=== PATIENT | female | born 1965 | race Caucasian/White ===

== ENCOUNTER 2022-07-29 10:06 | Emergency (ER) | payer BC, SELFPAY ==
[2022-07-29 10:10] VITALS: BP 147/78; PULSE 119; RESP 28; TEMP 36.4; O2SAT 93
--- NOTE | 2022-07-29 10:31 | XRR_ITS ---
PROCEDURE INFORMATION: Exam: XR Chest Exam date and time: 07/29/2022 10:37 AM Age: 56 years old Clinical indication: Cough and dyspnea. TECHNIQUE: Imaging protocol: Radiologic exam of the chest. Views: 1 view. COMPARISON: No relevant prior studies available. FINDINGS: Lungs: There is mild peribronchial wall thickening. There are hazy bibasilar opacity suspicious for subtle infiltrate/pneumonia. Surgical clips at the left hilum. Pleural spaces: No pleural effusion. No pneumothorax. Heart/Mediastinum: The heart/mediastinum appears enlarged which may be exaggerated by AP technique and rotation. No gross evidence of pneumomediastinum. Bones/joints: No gross fracture. Soft tissues: Scarring in the mid left chest with suture material and surgical clips. XR/XR chest 1V portable [id number] IMPRESSION: 1. The heart/mediastinum appears enlarged which may be exaggerated by AP technique and rotation. 2. There is mild peribronchial wall thickening; query viral infection/bronchitis, chronic bronchitis and/or asthma. 3. Hazy bibasilar opacity suspicious for subtle infiltrate/pneumonia. 4. Consider CT chest with contrast to further assess if clinically warranted.
--- NOTE | 2022-07-29 10:49 | ED_ITS ---
HPI - SOB/Dyspnea General: Chief Complaint: Shortness of Breath/Dyspnea Stated Complaint: SOB Time Seen by Provider: 07/29/22 10:20 Source: patient Mode of arrival: ambulatory History of Present Illness: HPI Narrative: 56-year-old female presents emergency room with cough congestion nausea vomiting and began 9 days ago. She was treated with course of antibiotics and steroids no improvement. She notes that exertion makes her shortness of breath worse resting makes it better she is not really having any chest pain that is slightly productive cough. On arrival here she is mildly tachycardic when I came to the room she was 88% on room air with a good waveform improved to the low 90s on 2 L by nasal cannula. 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 She has no known history of coronary artery disease, stroke or diabetes. Patient does smoke. MD elicited complaint: shortness of breath and cough Onset (ago): day(s) (9) Timing: intermittent Severity: mild Exacerbating factors: lying flat and exertion Relieving factors: rest and upright position Associated symptoms: Reports chest congestion and cough; Deny abdominal pain, chest pain, diaphoresis, dizziness, extremity pain, fever(s), hemoptysis, lightheadedness, myalgias, nausea, orthopnea, palpitations, paresthesias, polydipsia, polyuria, rash, sense of impending doom, syncope or vomiting Treatment prior to arrival: none Review of Systems Const: Denies: fever(s), chills, fatigue, malaise or diaphoresis ENMT: Denies: throat pain, ear or mastoid pain, nasal discharge or nasal congestion Card: Denies: chest pain, palpitations, irregular heart rhythm, edema, lightheadedness, syncope or orthopnea Resp: Reports: dyspnea, non-productive cough and chest congestion; Denies: productive cough, wheezing or hemoptysis GI: Denies: abdominal pain, nausea or vomiting : Denies: flank pain, difficulty voiding, dysuria, urinary frequency or urinary urgency Musc: Denies: extremity pain Skin/Breast: Denies: rash or pruritus Neuro: Denies: dizziness Endo: Denies: polyuria or polydipsia PFS ED PFSH: Medical History (Updated 07/29/22 @ 13:22 by Beau L Horstman, DO) Flhvl-Ioaoopsrx-Dqrot (WPW) syndrome Social History (Updated 07/29/22 @ 10:52 by Beau Hendrix DO) Smoking and tobacco status: current every day smoker Alcohol intake: current Alcohol intake frequency: holidays/special occasions only Physical Exam Const: COMMON NORMALS: no acute distress GENERAL APPEARANCE: cooperative and comfortable ORIENTATION/CONSCIOUSNESS: Yes awake, Yes oriented to person, Yes oriented to place and Yes oriented to time HENMT: COMMON NORMALS: normocephalic, atraumatic and hearing grossly normal bilaterally HEAD & SCALP: normocephalic and atraumatic Resp: COMMON NORMALS: normal respiratory effort, No retractions, No use of accessory muscles and clear to auscultation bilaterally AUSCULTATION: clear to auscultation bilaterally Cardio: COMMON NORMALS: regular rate, regular rhythm and No murmurs present (Cardio) RATE: regular rate RHYTHM: regular rhythm GI: COMMON NORMALS: Soft to palpation and No hepatosplenomegaly present AUSCULTATION: Yes normoactive bowel sounds PALPATION: Yes Soft to palpation, No Tenderness to palpation present (GI), No Guarding due to palpation present (GI) and Yes No hepatosplenomegaly present Extremity: COMMON NORMALS: normal to inspection, capillary refill normal, no clubbing, cyanosis or edema, no calf tenderness and no pedal edema Neuro: SENSORIUM/ORIENTATION: Yes oriented to person, Yes oriented to place and Yes oriented to time Skin: COMMON NORMALS: no rashes or lesions noted GENERAL SKIN EXAM: no rashes or lesions noted Course Vital Signs: Vital signs: Vital Signs Temperature 97.6 F 07/29/22 10:10 Pulse Rate 96 07/29/22 13:28 Respiratory Rate 16 07/29/22 13:25 Blood Pressure 147/78 07/29/22 10:10 Pulse Oximetry 91 07/29/22 13:29 Oxygen Delivery Me thod 07/29/22 13:25 Oxygen Flow Rate 2 07/29/22 11:03 MDM - SOB/Dyspnea Medical Decision Making No longer needs oxygen after having a nebulizer treatment we did do home O2 eval and it was negative. She is feeling somewhat better chest x-ray shows pneumonia . Will discharge home with albuterol steroid taper and Levaquin follow-up with her primary care doctor if not improving in the next few days. She was also given potassium supplement for her hypokalemia. Medical Records I reviewed the patient's medical records. Lab Data I reviewed the patient's lab results. 07/29/22 10:50 07/29/22 10:50 Labs/Radiology: Radiology Impressions Chest X-Ray 07/29/22 10:31 IMPRESSION: 1. The heart/mediastinum appears enlarged which may be exaggerated by AP technique and rotation. 2. There is mild peribronchial wall thickening; query viral infection/bronchitis, chronic bronchitis and/or asthma. 3. Hazy bibasilar opacity suspicious for subtle infiltrate/pneumonia. 4. Consider CT chest with contrast to further assess if clinically warranted. Laboratory Results WBC 9.3 10^3/uL (4.0-10.0) 07/29/22 10:50 RBC 4.91 10^6/uL (4.1-5.3) 07/29/22 10:50 Hgb 14.1 g/dL (11.5-15.3) 07/29/22 10:50 Hct 41.9 % (37.0-47.0) 07/29/22 10:50 MCV 85.3 fl (81-99) 07/29/22 10:50 MCH 28.7 pg (28.0-34.0) 07/29/22 10:50 MCHC 33.7 g/dL (30.0-36.0) 07/29/22 10:50 RDW 12.5 % (12.1-15.1) 07/29/22 10:50 Plt Count 359 10^3/cmm (130-400) 07/29/22 10:50 MPV 9.5 fL (7.4-10.4) 07/29/22 10:50 Neut % (Auto) 64.8 % 07/29/22 10:50 Lymph % (Auto) 28.8 % 07/29/22 10:50 [place] % (Auto) 5.1 % 07/29/22 10:50 Eos % (Auto) 0.6 % 07/29/22 10:50 Baso % (Auto) 0.1 % 07/29/22 10:50 Neut # (Auto) 6.04 10^3/uL (1.8-7.7) 07/29/22 10:50 Lymph # (Auto) 2.7 10^3/uL (0.8-4.8) 07/29/22 10:50 [place] # (Auto) 0.5 10^3/uL (0.2-0.9) 07/29/22 10:50 Eos # (Auto) 0.1 10^3/uL (0.0-0.8) 07/29/22 10:50 Baso # (Auto) 0.0 10^3/uL (0.0-0.1) 07/29/22 10:50 Nucleated RBC % (auto) 0 % 07/29/22 10:50 Nucleated RBCs # 0.0 /100WBC 07/29/22 10:50 Sodium 134 mmol/L (136-145) L 07/29/22 10:50 Potassium 2.6 mmol/L (3.5-5.1) L* 07/29/22 10:50 Chloride 97 mmol/L (98-107) L 07/29/22 10:50 Carbon Dioxide 22 mmol/L (22-29) 07/29/22 10:50 Anion Gap 17.6 (5-19) 07/29/22 10:50 BUN 5 mg/dL (6-20) L 07/29/22 10:50 Creatinine 0.6 mg/dL (0.5-0.9) 07/29/22 10:50 GFR Calculation 103.0 mL/min (90-130) 07/29/22 10:50 Glucose 188 mg/dL (65-115) H 07/29/22 10:50 Calculated Osmolality 280 mOsm/kg (285-295) L 07/29/22 10:50 Calcium 9.0 mg/dL (8.5-10.5) 07/29/22 10:50 Total Bilirubin 0.3 mg/dL (0.15-1.2) 07/29/22 10:50 AST 44 U/L (0-32) H 07/29/22 10:50 ALT 27 U/L (0-33) 07/29/22 10:50 Alkaline Phosphatase 115 U/L (35-105) H 07/29/22 10:50 NT-Pro-B Natriuret Pep 35 pg/mL (0-125) 07/29/22 10:50 Total Protein 7.8 g/dL (6.6-8.7) 07/29/22 10:50 Albumin 3.4 g/dL (3.5-5.2) L 07/29/22 10:50 Globulin 4.4 g/dL (1.3-4.6) 07/29/22 10:50 Nasal Influ A H1 2008 PCR Not detected (NOT DETECT) 07/29/22 11:15 Coronavirus 229E (PCR) Not detected (NOT DETECT) 07/29/22 11:15 Influenza A (H1) PCR Not detected (NOT DETECT) 07/29/22 11:15 Influenza A (H3) PCR Not detected (NOT DETECT) 07/29/22 11:15 Influenza Type A Ag Cancelled 07/29/22 11:15 Influenza Type A (PCR) Not detected (NOT DETECT) 07/29/22 11:15 Influenza Type B Ag Cancelled 07/29/22 11:15 Influenza Type B (PCR) Not detected (NOT DETECT) 07/29/22 11:15 SARS-CoV-2 (PCR) Not detected (NOT DETECT) 07/29/22 11:15 Discharge Plan Discharge Patient Disposition: Home Clinical Impression: Community acquired pneumonia, Acute exacerbation of chronic obstructive airways disease Condition: Stable Prescriptions: New levofloxacin 750 mg tablet 750 mg PO DAILY 7 Days Qty: 7 0RF albuterol sulfate 90 mcg/actuation HFA aerosol inhaler 2 inh INHALATION Q4H PRN (Reason: shortness of breath or wheezing) Qty: 18 0RF prednisone 20 mg tablet 20 mg PO TID Qty: 15 0RF Rx Instructions: 1 p.o. 3 times daily x3 days, 1 p.o. twice daily x2 days, 1 p.o. daily x2 days No Action losartan 50 mg tablet 50 mg PO DAILY fluoxetine 40 mg capsule 40 mg PO DAILY Rx Instructions: Take with 20mg to equal 60mg daily ibuprofen 800 mg tablet 800 mg PO TID PRN (Reason: Pain) sotalol 80 mg tablet 80 mg PO DAILY clonazepam 0.5 mg tablet 0.5 mg PO BID PRN (Reason: Anxiety) simvastatin 10 mg tablet 10 mg PO DAILY olanzapine 10 mg tablet 10 mg PO BEDTIME gabapentin 300 mg capsule 300 mg PO BID omeprazole 20 mg capsule,delayed release(DR/EC) 20 mg PO DAILY fluoxetine 20 mg capsule 20 mg PO DAILY Rx Instructions: Take with 40mg to equal 60mg once daily Discharge Orders: Discharge ED (Routine); Ordered 07/29/22 Ordered By: Beau Hendrix Discharge Diet: Usual diet Discharge Activity: Resume usual activity Patient Instructions: Opioid Safety, Pain Management Activity Restrictions/Additional Instructions: You were seen today for cough and shortness of breath imaging indicates you have pneumonia. Flu and COVID were negative. We will start you on Levaquin 750 mg once daily use albuterol as needed follow-up with doctor if you are not improving. Coding Level of Care Code ED Communications Professional for Chg Fwd Exam Detailed
[2022-07-29] MEDS: ipratropium-albuterol 3 mL Neb INHALATION ×2 (11:02→13:26)
[2022-07-29 11:03] VITALS: PULSE 97; RESP 16; O2SAT 93
[2022-07-29 11:04] LABS: Basophils % 0.1 %; Eosinophils # 0.1 10^3/uL (0.0-0.8); Eosinophils % 0.6 %; Hematocrit 41.9 % (37.0-47.0); Hemoglobin 14.1 g/dL (11.5-15.3); Lymphocytes # 2.7 10^3/uL (0.8-4.8); Lymphocytes % 28.8 %; Mean Corpuscular HGB Conc 33.7 g/dL (30.0-36.0); Mean Corpuscular Hemoglobin 28.7 pg (28.0-34.0); Mean Corpuscular Volume 85.3 fl (81-99); Mean Platelet Volume 9.5 fL (7.4-10.4); Monocytes # 0.5 10^3/uL (0.2-0.9); Monocytes % 5.1 %; Neutrophils # 6.04 10^3/uL (1.8-7.7); Neutrophils % 64.8 %; Nucleated Red Blood Cells % 0 %; Platelet Count 359 10^3/cmm (130-400); Red Blood Count 4.91 10^6/uL (4.1-5.3); Red Cell Distribution Width 12.5 % (12.1-15.1); White Blood Count 9.3 10^3/uL (4.0-10.0)
[2022-07-29 11:06] VITALS: PULSE 90
[2022-07-29 11:30] LABS: Alanine Aminotransferase 27 U/L (0-33); Albumin Level 3.4 g/dL (3.5-5.2); Alkaline Phosphatase 115 U/L (35-105); Anion Gap 17.6 (5-19); Aspartate Amino Transferase 44 U/L (0-32); Blood Urea Nitrogen 5 mg/dL (6-20); Carbon Dioxide 22 mmol/L (22-29); Chloride 97 mmol/L (98-107); Globulin 4.4 g/dL (1.3-4.6); Glucose 188 mg/dL (65-115); NT Pro B Type Natriuretic Pept 35 pg/mL (0-125); Osmolality Calculated 280 mOsm/kg (285-295); Sodium 134 mmol/L (136-145); Total Bilirubin 0.3 mg/dL (0.15-1.2); Total Protein 7.8 g/dL (6.6-8.7)
[2022-07-29 11:36] LABS: Potassium 2.6 mmol/L (3.5-5.1)
[2022-07-29] MEDS: potassium chloride oral liq 20 mEq/15 mL UDC 60 MEQ PO (11:51)
[2022-07-29 13:03] LABS: Adenovirus Not Detected (NOT DETECT); Chlamydia Pneumoniae Not Detected (NOT DETECT); Coronavirus 229E,HKU1,NL63,OC4 Not Detected (NOT DETECT); Human Metapneumovirus Not Detected (NOT DETECT); Human Rhinovirus/Enterovirus Not Detected (NOT DETECT); Influenza A Not Detected (NOT DETECT); Influenza A H1 Not Detected (NOT DETECT); Influenza A H1-2009 Not Detected (NOT DETECT); Influenza A H3 Not Detected (NOT DETECT); Influenza B Not Detected (NOT DETECT); Mycoplasma Pneumoniae Not Detected (NOT DETECT); Parainfluenza Virus Type 1 Not Detected (NOT DETECT); Parainfluenza Virus Type 2 Not Detected (NOT DETECT); Parainfluenza Virus Type 3 Not Detected (NOT DETECT); Parainfluenza Virus Type 4 Not Detected (NOT DETECT); Respiratory Syncytial Virus A Not Detected (NOT DETECT); Respiratory Syncytial Virus B Not Detected (NOT DETECT); SARS-COV-2 Not Detected (NOT DETECT)
[2022-07-29 13:08] LABS: Influenza A Not Detected (NOT DETECT); Influenza A H1 Not Detected (NOT DETECT); Influenza A H1-2009 Not Detected (NOT DETECT); Influenza A H3 Not Detected (NOT DETECT); Influenza B Not Detected (NOT DETECT); Results from Genmark
[2022-07-29 13:25] VITALS: PULSE 96; RESP 16; O2SAT 90
[2022-07-29 13:28] VITALS: PULSE 96
[2022-07-29 13:29] VITALS: O2SAT 90; O2SAT 91
== END 2022-07-29 14:30 | disposition home or self-care (01) ==
PROVIDERS: Emergency Provider Family Medicine
DX: J44.0 Chronic obstructive pulmonary disease with (acute) lower respiratory infection (principal); J18.9 Pneumonia, unspecified organism; J44.1 Chronic obstructive pulmonary disease with (acute) exacerbation; Z20.822 Contact with and (suspected) exposure to COVID-19; F17.210 Nicotine dependence, cigarettes, uncomplicated; I45.6 Pre-excitation syndrome
CPT/HCPCS: 36415; 71045; 80053; 83880; 85025; 87040; 87631; 87635; 94640; 96374; 99285; J2930

== ENCOUNTER 2023-05-14 20:00 | Outpatient (CLI) | payer BC, SELFPAY | END 2023-05-14 20:01 | disposition home or self-care (01) | LOC: SLEEP 05-15 06:16 | PROVIDERS: Visit Provider Anesthesiology Pain Medicine | DX: G47.10 Hypersomnia, unspecified (principal); R06.83 Snoring | CPT/HCPCS: 95810 ==

== ENCOUNTER 2023-10-06 21:57 | Emergency (ER) | payer SELFPAY ==
[2023-10-06 22:01] VITALS: BP 149/86; PULSE 111; RESP 20; TEMP 36.9; O2SAT 93; BMI 30.7
--- NOTE | 2023-10-06 22:06 | XRR_ITS ---
PROCEDURE INFORMATION: Exam: XR Chest Exam date and time: 10/06/2023 10:17 PM Age: 57 years old Clinical indication: Angina pectoris; Patient HX: Left arm pain; Left chest pain; HX of lt thoracotomy; Additional info: Cp TECHNIQUE: Imaging protocol: Radiologic exam of the chest. Views: 1 view. COMPARISON: CR XR chest 1V portable [id number] 11/05/2021 10:37 FINDINGS: Lungs: Left partial pneumonectomy changes. Shallow inspiration with crowding. Mixed interstitial and ground-glass opacities in both lung bases are unchanged from the prior study. No consolidation. Pleural spaces: Unremarkable. No pleural effusion. No pneumothorax. Heart/Mediastinum: Mild cardiomegaly, accentuated by shallow inspiration. Bones/joints: Unremarkable. XR/XR chest 1V portable [id number] IMPRESSION: 1. Stable opacities in the lung bases could represent chronic interstitial fibrosis. Pulmonary edema or pneumonia can not be excluded.
--- NOTE | 2023-10-06 22:06 | ECG_ITS ---
[facility] Test Date: 2023-10-06 Pat Name: Jennifer Kahn Department: Room: Gender: Female Director Of Epidemiology: : 1965 Requested By: Fredrick Mendoza Order Number: [id number] Roberta MD: Chava Celeste M.D. Measurements Intervals [place] Rate: 121 P: 38 HI: 170 QRS: 41 QRSD: 70 T: 21 QT: 414 QTc: 589 Interpretive Statements SINUS TACHYCARDIA MINIMAL ST DEPRESSION [0.025+ mV ST DEPRESSION] ABNORMAL RHYTHM ECG No previous ECG available for comparison Electronically Signed On 10-07-2023 8:21:46 VALUE ADVISOR by Chava Celeste M.D. [id number]
[2023-10-06 22:15] LABS: Basophils % 0.2 %; Eosinophils # 0.2 10^3/uL (0.0-0.8); Eosinophils % 1.2 %; Hematocrit 42.8 % (36-47); Lymphocytes # 5.4 10^3/uL (0.8-4.8); Lymphocytes % 41.7 %; Mean Corpuscular HGB Conc 32.7 g/dL (30-55); Mean Corpuscular Hemoglobin 28.5 pg (27-33); Mean Corpuscular Volume 87.2 fl (85-98); Mean Platelet Volume 8.2 fL (7.4-10.4); Monocytes # 0.7 10^3/uL (0.2-0.9); Monocytes % 5.5 %; Neutrophils % 51.1 %; Nucleated Red Blood Cells % 0 %; Platelet Count 376 10^3/cmm (157-399); Red Blood Count 4.91 10^6/uL (3.85-5.65); Red Cell Distribution Width 13.3 % (12.1-15.1); White Blood Count 12.91 10^3/uL (3.29-11.43)
[2023-10-06 22:18] VITALS: BP 149/86; PULSE 95; RESP 19; O2SAT 94
[2023-10-06 22:22] LABS: INR 0.96 (0.8-1.2); Partial Thromboplastin Time 27.5 SECONDS (23.9-36.7)
[2023-10-06 22:25] LABS: D Dimer 0.98 ug/mLFEU (0-0.59)
[2023-10-06 22:36] LABS: Troponin(5th) Baseline < 6 ng/L (0-10)
[2023-10-06 22:38] LABS: Alanine Aminotransferase 8 U/L (0-33); Albumin Level 3.6 g/dL (3.5-5.2); Alkaline Phosphatase 97 U/L (35-105); Anion Gap 15.5 (5-19); Aspartate Amino Transferase 14 U/L (0-32); Blood Urea Nitrogen 6 mg/dL (6-20); Calcium 8.8 mg/dL (8.5-10.5); Carbon Dioxide 25 mmol/L (22-29); Chloride 100 mmol/L (98-107); Creatine Phosphokinase 29 U/L (26-192); Globulin 3.9 g/dL (1.3-4.6); Glomerular Filtration Rate 126.7 mL/min (90-130); Glucose 130 mg/dL (65-115); Lipase 34 U/L (13-60); NT Pro B Type Natriuretic Pept 108 pg/mL (0-125); Osmolality Calculated 283 mOsm/kg (285-295); Potassium 3.5 mmol/L (3.5-5.1); Sodium 137 mmol/L (136-145); Total Bilirubin 0.2 mg/dL (0.15-1.2); Total Protein 7.5 g/dL (6.6-8.7)
--- NOTE | 2023-10-06 22:48 | CTR_ITS ---
PROCEDURE INFORMATION: Exam: CTA Chest With Contrast Exam date and time: 10/06/2023 10:55 PM Age: 57 years old Clinical indication: Pain and abnormal findings; Abnormal diagnostic tests; Elevated d-dimer; Shortness of breath; Chest pressure; Prior surgery; Surgery date: 6+ months; Surgery type: Thoracotomy; Patient HX: Cp with SOB and tachycardia. Dimer 0.98. History of lung cancer. ; Additional info: Cp tachycardia TECHNIQUE: Imaging protocol: Computed tomographic angiography of the chest with contrast. Exam focused on the arteries. 3D rendering (Not supervised by radiologist): MIP and/or 3D reconstructed images were created by the technologist. Radiation optimization: All CT scans at this facility use at least one of these dose optimization techniques: automated exposure control; mA and/or kV adjustment per patient size (includes targeted exams where dose is matched to clinical indication); or iterative reconstruction. Contrast material: OMNI 350; Contrast volume: 68 ml; Contrast route: INTRAVENOUS (IV); COMPARISON: CR (CHEST, ) 05/28/2024 22:17 RADIATION DOSE METRICS: Total DLP (mGy-cm): 419.39 FINDINGS: Pulmonary arteries: Normal. No pulmonary emboli. Aorta: Unremarkable. No aortic aneurysm. No aortic dissection. Lungs: Interstitial fibrosis throughout both lungs with intermixed ground-glass opacities. Honeycombing in the upper lobes, right greater left. Calcified granuloma in the left lung. Pleural spaces: Pleural calcification along the left major fissure. Heart: The heart size is normal. Coronary arteries: Mild coronary artery calcifications. Lymph nodes: Prominent mediastinal and hilar lymph nodes measuring up to 1.4 cm short axis. Calcified left hilar lymph nodes. Liver: 2.8 cm hypodensity in the posterior left liver lobe, segment 4B. Adrenal glands: 2.2 cm right adrenal nodule, Hounsfield units 10, consistent with a benign adenoma. Bones/joints: Mild degenerative changes in the spine. No acute fracture. Old posterior left rib fracture. Soft tissues: Unremarkable. CT/CT angio chest PE protcl [id number] IMPRESSION: 1. No evidence for pulmonary embolus. 2. 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 This can be seen with idiopathic pulmonary fibrosis, collagen vascular disease, chronic drug reaction, end-stage hypersensitivity pneumonitis, among others. 3. Superimposed ground-glass opacities in both lungs most likely represents the acute phase of interstitial fibrosis. Superimposed multilobar pneumonia is not excluded. 4. Enlarged mediastinal and bilateral hilar lymph nodes. These are most likely infectious or reactive. A neoplastic process is not entirely excluded. 5. 2.8 cm hypodensity in the left liver lobe. Further evaluation with non-emergent liver MRI is recommended. (Reference: Zian) References: Zain BORREGO, et al. Management of Incidental Liver Lesions on CT: A White Paper of the ACR Incidental Findings Committee. J Am [place] Radiol. 2017;14(11):0055-5326.
--- NOTE | 2023-10-06 22:51 | ED_ITS ---
HPI - Chest Pain 2 General: Chief Complaint: Chest Pain Stated Complaint: Left arm and cp Time Seen by Provider: 10/06/23 21:59 History of Present Illness: 57-year-old female with no prior history of coronary disease. She does have a history of lung disease. She presents with left upper chest pain, and left upper arm pain. She is short of breath. She has had a productive cough. No fever. No leg swelling. She does have a prior history of WPW status post failed ablation. She takes sotalol for rate control. MD complaint: chest pain Associated symptoms: Reports dyspnea and palpitations; Deny abdominal pain, fever(s), nausea or vomiting Review of Systems 2 Const: Denies: fever(s) or chills ENMT: Denies: throat pain Card: Reports: chest pain and palpitations Resp: Reports: dyspnea and productive cough GI: Denies: abdominal pain, nausea or vomiting Musc: Reports: extremity pain (left arm pain) Neuro: Denies: headache(s) PFSH ED 2 PFSH: Medical History Thiym-Zvlvuzvxu-Mjhww (WPW) syndrome Social History Smoking and tobacco/nicotine status: current every day tobacco/nicotine user Alcohol intake: current Alcohol intake frequency: holidays/special occasions only Physical Exam 2 Const: COMMON NORMALS: no acute distress GENERAL APPEARANCE: cooperative; not ill appearing and not frail appearing HENMT: COMMON NORMALS: normocephalic, atraumatic and Normal external nose present HEAD & SCALP: normocephalic and atraumatic FACE & SINUS: normal facial exam and face symmetric NOSE: Normal external nose present Eye: COMMON NORMALS: Equal, round and reactive pupils present and EOMs intact bilaterally PUPIL: Yes Equal, round and reactive pupils present Neck/C-Spine: GENERAL: Yes trachea midline Chest: CHEST: Yes Symmetrical chest wall rise Resp: COMMON NORMALS: normal respiratory effort, No retractions, No use of accessory muscles and clear to auscultation bilaterally AUSCULTATION: clear to auscultation bilaterally Cardio: COMMON NORMALS: regular rate and regular rhythm RATE: regular rate RHYTHM: regular rhythm GI: COMMON NORMALS: Normal to inspection, nondistended, normoactive bowel sounds present Extremity: COMMON NORMALS: no pedal edema Neuro: EDWIN COMA SCALE: document GCS findings Edwin coma scale eye opening: Spontaneous Warrior coma scale verbal response: Orientated Edwin coma scale motor response: Obey commands Edwin coma scale total score: 15 S ENSORY EXAM: Yes extremities (intact) Psych: COMMON NORMALS: speech normal SPEECH: Yes normal speech Skin: COMMON NORMALS: no rashes or lesions noted GENERAL SKIN EXAM: no rashes or lesions noted Course 2 Vital Signs: Vital signs: Vital Signs Temperature 98.4 F 10/06/23 22:01 Pulse Rate 112 H 10/07/23 01:35 Respiratory Rate 18 10/07/23 01:35 Blood Pressure 149/86 10/06/23 22:18 Pulse Oximetry 91 10/07/23 01:35 Oxygen Delivery Me thod Room Air 10/07/23 00:32 MDM - Chest Pain Medical Decision Making 57-year-old female presenting with left upper chest and left upper arm pain, cough, and shortness of breath. She was mildly tachycardic on presentation. Oxygen saturations are 90-93 on room air. She does not appear overly short of breath symptomatically. Chest x-ray reveals stable appearing opacities likely representing chronic interstitial fibrosis. Her D-dimer was elevated, CTA was performed. There is no pulmonary embolus. There is fibrosis present with superimposed groundglass opacities in both lungs likely representing acute fibrosis versus multilobular pneumonia. She will be treated with steroids, antibiotics. Swabs for COVID and flu were negative. Her EKG does not show any acute ST wave changes. Her BNP and troponin are negative. Lab Data 10/06/23 22:05 10/06/23 22:05 Radiology Impressions Chest X-Ray 10/06/23 22:06 IMPRESSION: 1. Stable opacities in the lung bases could represent chronic interstitial fibrosis. Pulmonary edema or pneumonia can not be excluded. Chest CTA 10/06/23 22:48 IMPRESSION: 1. No evidence for pulmonary embolus. 2. 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 This can be seen with idiopathic pulmonary fibrosis, collagen vascular disease, chronic drug reaction, end-stage hypersensitivity pneumonitis, among others. 3. Superimposed ground-glass opacities in both lungs most likely represents the acute phase of interstitial fibrosis. Superimposed multilobar pneumonia is not excluded. 4. Enlarged mediastinal and bilateral hilar lymph nodes. These are most likely infectious or reactive. A neoplastic process is not entirely excluded. 5. 2.8 cm hypodensity in the left liver lobe. Further evaluation with non-emergent liver MRI is recommended. (Reference: Zain) References: Zain BORREGO, et al. Management of Incidental Liver Lesions on CT: A White Paper of the ACR Incidental Findings Committee. J Am [place] Radiol. 2017;14(11):4009-1255. Laboratory Results WBC 12.91 10^3/uL (3.29-11.43) H 10/06/23 22:05 RBC 4.91 10^6/uL (3.85-5.65) 10/06/23 22:05 Hgb 14.00 g/dL (11.27-16.99) 10/06/23 22:05 Hct 42.8 % (36-47) 10/06/23 22:05 MCV 87.2 fl (85-98) 10/06/23 22:05 MCH 28.5 pg (27-33) 10/06/23 22:05 MCHC 32.7 g/dL (30-55) 10/06/23 22:05 RDW 13.3 % (12.1-15.1) 10/06/23 22:05 Plt Count 376 10^3/cmm (157-399) 10/06/23 22:05 MPV 8.2 fL (7.4-10.4) 10/06/23 22:05 Neut % (Auto) 51.1 % 10/06/23 22:05 Lymph % (Auto) 41.7 % 10/06/23 22:05 [place] % (Auto) 5.5 % 10/06/23 22:05 Eos % (Auto) 1.2 % 10/06/23 22:05 Baso % (Auto) 0.2 % 10/06/23 22:05 Neut # (Auto) 6.60 10^3/uL (1.8-7.7) 10/06/23 22:05 Lymph # (Auto) 5.4 10^3/uL (0.8-4.8) H 10/06/23 22:05 [place] # (Auto) 0.7 10^3/uL (0.2-0.9) 10/06/23 22:05 Eos # (Auto) 0.2 10^3/uL (0.0-0.8) 10/06/23 22:05 Baso # (Auto) 0.0 10^3/uL (0.0-0.1) 10/06/23 22:05 Nucleated RBC % (auto) 0 % 10/06/23 22:05 Nucleated RBCs # 0.0 /100WBC 10/06/23 22:05 PT 13.10 SECONDS (12.1-14.9) 10/06/23 22:05 INR 0.96 (0.8-1.2) 10/06/23 22:05 APTT 27.5 SECONDS (23.9-36.7) 10/06/23 22:05 D-Dimer 0.98 ug/mLFEU (0-0.59) H 10/06/23 22:05 Sodium 137 mmol/L (136-145) 10/06/23 22:05 Potassium 3.5 mmol/L (3.5-5.1) 10/06/23 22:05 Chloride 100 mmol/L (98-107) 10/06/23 22:05 Carbon Dioxide 25 mmol/L (22-29) 10/06/23 22:05 Anion Gap 15.5 (5-19) 10/06/23 22:05 BUN 6 mg/dL (6-20) 10/06/23 22:05 Creatinine 0.5 mg/dL (0.5-0.9) 10/06/23 22:05 GFR Calculation 126.7 mL/min (90-130) 10/06/23 22:05 Glucose 130 mg/dL (65-115) H 10/06/23 22:05 Calculated Osmolality 283 mOsm/kg (285-295) L 10/06/23 22:05 Calcium 8.8 mg/dL (8.5-10.5) 10/06/23 22:05 Total Bilirubin 0.2 mg/dL (0.15-1.2) 10/06/23 22:05 AST 14 U/L (0-32) 10/06/23 22:05 ALT 8 U/L (0-33) 10/06/23 22:05 Alkaline Phosphatase 97 U/L (35-105) 10/06/23 22:05 Creatine Kinase 29 U/L (26-192) 10/06/23 22:05 Troponin T Baseline < 6 ng/L (0-10) 10/06/23 22:05 Troponin T 120 Minute 6.00 ng/L (0-10) 10/07/23 00:32 Delta Troponin T 0.27612 ABS# (0-10) 10/07/23 00:32 NT-Pro-B Natriuret Pep 108 pg/mL (0-125) 10/06/23 22:05 Total Protein 7.5 g/dL (6.6-8.7) 10/06/23 22:05 Albumin 3.6 g/dL (3.5-5.2) 10/06/23 22:05 Globulin 3.9 g/dL (1.3-4.6) 10/06/23 22:05 Lipase 34 U/L (13-60) 10/06/23 22:05 Influenza Type A Ag negative (Negative) 10/06/23 22:58 Influenza Type B Ag negative (Negative) 10/06/23 22:58 SARS-CoV-2 Ag (Rapid) negative (Negative) 10/06/23 22:58 All radiology interpretation(s) finalized by discharge Discharge Plan Discharge Patient Disposition: Home Clinical Impression: Chest pain, Pneumonia, Pulmonary fibrosis Condition: Stable Prescriptions: New cefdinir 300 mg capsule 300 mg PO BID Qty: 14 0RF azithromycin 250 mg tablet See Rx Instructions .ROUTE .COMPLEX Qty: 6 0RF Rx Instructions: For 250 mg dose pack: take 500 mg today (day 1), then 250 mg for 4 days (days 2-5) Continued prednisone 20 mg tablet 20 mg PO TID Qty: 15 0RF Rx Instructions: 1 p.o. 3 times daily x3 days, 1 p.o. twice daily x2 days, 1 p.o. daily x2 days No Action losartan 50 mg tablet 50 mg PO DAILY fluoxetine 40 mg capsule 40 mg PO DAILY Rx Instructions: Take with 20mg to equal 60mg daily ibuprofen 800 mg tablet 800 mg PO TID PRN (Reason: Pain) sotalol 80 mg tablet 80 mg PO DAILY clonazepam 0.5 mg tablet 0.5 mg PO BID PRN (Reason: Anxiety) simvastatin 10 mg tablet 10 mg PO DAILY olanzapine 10 mg tablet 10 mg PO BEDTIME gabapentin 300 mg capsule 300 mg PO BID omeprazole 20 mg capsule,delayed release(DR/EC) 20 mg PO DAILY fluoxetine 20 mg capsule 20 mg PO DAILY Rx Instructions: Take with 40mg to equal 60mg once daily albuterol sulfate 90 mcg/actuation HFA aerosol inhaler 2 inh INHALATION Q4H PRN (Reason: shortness of breath or wheezing) Qty: 18 0RF Discharge Orders: Discharge ED (Routine); Ordered 10/07/23 Ordered By: Fredrick Coulter Patient Instructions: Chest Pain (ED), Pneumonia (ED), Opioid Safety, Pain Management Activity Restrictions/Additional Instructions: Medications as directed. Return for worsening shortness of breath chest discomfort or arm discomfort despite treatment, fever despite 2-3 doses of antibiotics, vomiting liquids or medications, any other concerning symptoms. See your doctor next week for follow-up. Coding Level of Care Code ED Nonprofit Financial Controller for Jing Cali
[2023-10-06] MEDS: iohexol 350 mg/mL 500 mL Btl (per mL) IV (22:57)
[2023-10-06 23:16] LABS: Influenza A by IFA negative (Negative); Influenza B by IFA negative (Negative); SARS Covid-2 Antigen negative (Negative)
[2023-10-07] MEDS: azithromycin 250 mg Tablet 500 MG PO (00:25)
[2023-10-07] MEDS: ondansetron 2 mg/ML SDV 2 mL 4 MG IVP (00:26)
[2023-10-07] MEDS: morphine 4 mg/mL SDV 1 mL IVP (00:28)
[2023-10-07] MEDS: methylPREDNISolone sod succ 125 mg/2 mL INJ IVP (00:31)
[2023-10-07 00:32] VITALS: PULSE 106; RESP 18; O2SAT 91
[2023-10-07] MEDS: cefTRIAXone 1,000 MG in sodium chloride 0.9% (plus) 50 ML 100 MG IV (00:34)
[2023-10-07 01:15] LABS: Troponin 5 2HR Delta 0.00001 ABS# (0-10)
[2023-10-07 01:35] VITALS: PULSE 112; RESP 18; O2SAT 91
== END 2023-10-07 01:34 | disposition home or self-care (01) ==
PROVIDERS: Emergency Provider Emergency Medicine
DX: R07.9 Chest pain, unspecified (principal); J18.9 Pneumonia, unspecified organism; J84.10 Pulmonary fibrosis, unspecified; Z11.52 Encounter for screening for COVID-19; Z72.0 Tobacco use; I45.6 Pre-excitation syndrome
CPT/HCPCS: 36415; 71045; 71275; 80053; 82550; 83690; 83880; 84484; 85025; 85378; 85610; 85730; 87426; 87804; 93005; 96365; 96375; 99285; J0696; J2270; J2405; J2930; Q0144; Q9967

== ENCOUNTER 2023-12-25 09:25 | Outpatient (CLI) | payer MEDICAID, SELFPAY ==
--- NOTE | 2023-12-25 09:30 | MM_ITS ---
WS: [id number] BILATERAL 3D TOMOSYNTHESIS DIGITAL SCREENING MAMMOGRAPHY WITH CAD CLINICAL INFORMATION: SCREENING HISTORY: Screening mammogram. No current complaints. COMPARISON: New baseline TECHNIQUE: Bilateral CC and MLO views. FINDINGS: Scattered fibroglandular densities bilaterally. Small 6 mm focal asymmetric density upper outer RIGHT breast. Recommend RIGHT breast diagnostic mammography and ultrasound if persistent. LEFT breast is unremarkable. MM/[place] [id number] IMPRESSION: BI-RADS: 0-Incomplete: Need additional imaging evaluation FOLLOW UP: Need Additional Imaging Recommend RIGHT breast diagnostic mammography and ultrasound if persistent.
== END 2023-12-25 09:26 | disposition home or self-care (01) ==
LOC: MOBLMAM 09:42
PROVIDERS: PCP Nurse Practitioner Primary Care; Visit Provider Nurse Practitioner Primary Care
DX: Z12.31 Encounter for screening mammogram for malignant neoplasm of breast (principal); R92.323 Mammographic fibroglandular density, bilateral breasts
CPT/HCPCS: 77063; 77067

== ENCOUNTER 2024-01-31 13:04 | Outpatient (CLI) | payer MEDICAID, SELFPAY ==
--- NOTE | 2024-01-31 13:08 | MM_ITS ---
WS: [id number] RIGHT 3D TOMOSYNTHESIS DIGITAL MAMMOGRAPHY WITH CAD CLINICAL INFORMATION: 6MM FOCAL ASYMMETRIC DENSITY UO RT BREAST HISTORY: Additional views COMPARISON: 12/25/2023 TECHNIQUE: 3 views of the right breast were obtained. FINDINGS: Scattered fibroglandular densities of the right breast. Previously described small 6 mm focal asymmet radha density upper outer RIGHT breast partially compresses out on the spot compression views. Faint re sidual density. Ultrasound is pending. ULTRASOUND BREAST RIGHT TECHNIQUE: Ultrasound right breast focused area of concern. CLINICAL INFORMATION: 6MM FOCAL ASYMMETRIC DENSITY UO RT BREAST FINDINGS: Ultrasound RIGHT breast upper-outer quadrant. At the 9 o'clock position, 7 cm from the nipple, there is a 8 x 9 x 6 mm ovoid nodule with a fatty hilum compatible with an incidental intramammary lymph no de. No other suspicious findings. Recommend return to annual screen mammography. MM/[place] [id number] IMPRESSION: BI-RADS: 2-Benign FOLLOW UP: 1 Year Follow-up Recommend return to annual screening mammography.
== END 2024-01-31 13:05 | disposition home or self-care (01) ==
LOC: RAD 13:05
PROVIDERS: PCP Nurse Practitioner Primary Care; Visit Provider Nurse Practitioner Family
DX: N63.11 Unspecified lump in the right breast, upper outer quadrant (principal); R92.321 Mammographic fibroglandular density, right breast
CPT/HCPCS: 76642; 77061; G0279

== ENCOUNTER 2024-02-16 16:59 | Emergency (ER) | payer MEDICAID, SELFPAY ==
[2024-02-16] VITALS (8 sets, daily range): BP systolic 132–156; BP diastolic 79–85; PULSE 84–111; RESP 15–18; TEMP 36.8; O2SAT 92–94; BMI 29.8
--- NOTE | 2024-02-16 17:07 | ECG_ITS ---
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 Measurements Intervals [place] Rate: 107 P: 18 [place]: 124 QRS: 51 QRSD: 89 T: 5 QT: 345 QTc: 461 Interpretive Statements SINUS TACHYCARDIA POSSIBLE LEFT ATRIAL ENLARGEMENT [-0.1mV P-WAVE IN V1/V2] MODERATE ST DEPRESSION [0.05+ mV ST DEPRESSION] Compared to ECG 10/06/2023 22:01:40 No significant changes Electronically Signed On 02-17-2024 9:53:56 CDT by Chava Celeste M.D. [id number]
--- NOTE | 2024-02-16 18:09 | ECG_ITS ---
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 Measurements Intervals [place] Rate: 91 P: 45 ID: 160 QRS: 79 QRSD: 85 T: 9 QT: 365 QTc: 449 Interpretive Statements SINUS RHYTHM POSSIBLE LEFT ATRIAL ENLARGEMENT [-0.1mV P-WAVE IN V1/V2] MINIMAL ST DEPRESSION [0.025+ mV ST DEPRESSION] Compared to ECG 02/16/2024 17:02:45 Sinus tachycardia no longer present ST (T wave) deviation still present Electronically Signed On 02-17-2024 9:56:32 CDT by Chava Celeste M.D. [id number]
--- NOTE | 2024-02-16 18:09 | XRR_ITS ---
PROCEDURE INFORMATION: Exam: XR Chest Exam date and time: 02/16/2024 6:25 PM Age: 58 years old Clinical indication: Chest pressure; Prior surgery; Surgery date: 6+ months; Surgery type: Left upper pneumectomy; Patient HX: PT was woken up this morning around 0200 with chest pains that resolved quickly. PT reports all day having fatigue, gen weakness, and nausea with upper back pain. ; Additional info: Cp TECHNIQUE: Imaging protocol: Radiologic exam of the chest. Views: 1 view. COMPARISON: CT angio chest PE protcl [id number] 10/06/2023 10:55 PM FINDINGS: Lungs: Diffuse interstitial markings with peribronchial cuffing throughout both lungs are nonspecific but can be seen the setting of bronchitis, pulmonary vascular congestion, viral infection and small-vessel airways disease. Pleural spaces: Unremarkable. No pleural effusion. No pneumothorax. Heart/Mediastinum: Unremarkable. No cardiomegaly. Bones/joints: Unremarkable. XR/XR chest 1V portable [id number] IMPRESSION: Diffuse interstitial markings with peribronchial cuffing throughout both lungs are nonspecific but can be seen the setting of bronchitis, pulmonary vascular congestion, viral infection and small-vessel airways disease.
[2024-02-16 18:22] LABS: Basophils % 0.4 %; Eosinophils # 0.1 10^3/uL (0.0-0.8); Eosinophils % 1.1 %; Hematocrit 44.9 % (36-47); Lymphocytes # 3.7 10^3/uL (0.8-4.8); Lymphocytes % 40.7 %; Mean Corpuscular HGB Conc 32.3 g/dL (30-55); Mean Corpuscular Hemoglobin 27.7 pg (27-33); Mean Corpuscular Volume 85.9 fl (85-98); Mean Platelet Volume 8.4 fL (7.4-10.4); Monocytes # 0.7 10^3/uL (0.2-0.9); Monocytes % 7.7 %; Neutrophils # 4.52 10^3/uL (1.8-7.7); Neutrophils % 49.8 %; Nucleated Red Blood Cells % 0 %; Platelet Count 308 10^3/cmm (157-399); Red Blood Count 5.23 10^6/uL (3.85-5.65); Red Cell Distribution Width 13.2 % (12.1-15.1); White Blood Count 9.09 10^3/uL (3.29-11.43)
[2024-02-16 18:30] LABS: D Dimer 0.66 ug/mLFEU (0-0.59)
--- NOTE | 2024-02-16 18:32 | CTR_ITS ---
PROCEDURE INFORMATION: Exam: CTA Chest With Contrast Exam date and time: 02/16/2024 6:41 PM Age: 58 years old Clinical indication: Pain and abnormal findings; Abnormal diagnostic tests; Elevated d-dimer; Shortness of breath; Radiating; Prior surgery; Surgery date: 6+ months; Surgery type: Left upper pneumenectomy; Patient HX: C/O chest and upper back pain with SOB and dimer of .66; Additional info: Chest pain, SOB, elevated d dimer TECHNIQUE: Imaging protocol: Computed tomographic angiography of the chest with contrast. Exam focused on the arteries. 3D rendering (Not supervised by radiologist): MIP and/or 3D reconstructed images were created by the technologist. Radiation optimization: All CT scans at this facility use at least one of these dose optimization techniques: automated exposure control; mA and/or kV adjustment per patient size (includes targeted exams where dose is matched to clinical indication); or iterative reconstruction. Contrast material: OMNI 350; Contrast volume: 76 ml; Contrast route: INTRAVENOUS (IV); COMPARISON: CT angio chest PE protcl [id number] 10/06/2023 10:55 PM RADIATION DOSE METRICS: Total DLP (mGy-cm): 452.71 FINDINGS: Pulmonary arteries: No pulmonary emboli. Aorta: Unremarkable. No aortic aneurysm. No aortic dissection. Lungs: Extensive peripheral interstitial markings throughout lungs can be seen in the setting of chronic interstitial lung disease. Pleural spaces: Unremarkable. No pneumothorax. No pleural effusion. Heart: Unremarkable. No cardiomegaly. No pericardial effusion. Coronary arteries: Coronary arterial atherosclerotic calcifications are present. Lymph nodes: Multiple prominent bilateral hilar lymph nodes and mediastinal lymph nodes including a precarinal lymph node measuring up to 14 mm in short axis which are thought to be reactive in nature. Adrenal glands: There is a 16 mm hypodense lesion in the left adrenal gland measuring 12 Hounsfield units and a 2.1 cm hypodense lesion in the right adrenal gland measuring 18 Hounsfield units. These are indeterminate and a three-phase adrenal CT or adrenal MRI may be obtained to further evaluate lesions. Bones/joints: Postsurgical changes status post prior partial rib resection on the left 6th rib posteriorly. Soft tissues: Unremarkable. CT/CT angio chest PE protcl [id number] IMPRESSION: 1. No pulmonary emboli. 2. Extensive peripheral interstitial markings throughout lungs can be seen in the setting of chronic interstitial lung disease. Findings are similar to the prior chest CT dated 10/06/2023. 3. There is a 16 mm hypodense lesion in the left adrenal gland measuring 12 Hounsfield units and a 2.1 cm hypodense lesion in the right adrenal gland measuring 18 Hounsfield units. These are indeterminate and a three-phase adrenal CT or adrenal MRI may be obtained to further evaluate lesions.
[2024-02-16 18:35] LABS: Troponin(5th) Baseline < 6 ng/L (0-10)
[2024-02-16 18:41] LABS: Alanine Aminotransferase 10 U/L (0-33); Albumin Level 3.8 g/dL (3.5-5.2); Alkaline Phosphatase 99 U/L (35-105); Anion Gap 13.6 (5-19); Aspartate Amino Transferase 12 U/L (0-32); Blood Urea Nitrogen 5 mg/dL (6-20); Carbon Dioxide 29 mmol/L (22-29); Chloride 101 mmol/L (98-107); Creatine Phosphokinase 32 U/L (26-192); Creatinine Clr Calc Pharmacy 110.2014; Globulin 3.6 g/dL (1.3-4.6); Glomerular Filtration Rate 102.3 mL/min (90-130); Glucose 121 mg/dL (65-115); NT Pro B Type Natriuretic Pept 366 pg/mL (0-125); Osmolality Calculated 289 mOsm/kg (285-295); Potassium 3.6 mmol/L (3.5-5.1); Sodium 140 mmol/L (136-145); Total Bilirubin 0.2 mg/dL (0.15-1.2); Total Protein 7.4 g/dL (6.6-8.7)
[2024-02-16] MEDS: iohexol 350 mg/mL 500 mL Btl (per mL) IV (18:45)
--- NOTE | 2024-02-16 19:04 | ED_ITS ---
HPI - Chest Pain 2 General: Chief Complaint: Chest Pain Stated Complaint: weak, tired, back pains Time Seen by Provider: 02/16/24 18:03 History of Present Illness: 58-year-old smoker with a history of WPW and pulmonary fibrosis. She presents with chest pain and upper back pain. It started around 2 AM. It is gone now. Started in her chest, later in the day moved to her back. She has felt tired and generally weak most of the day as well. No fever. Chronic cough. Minimal sputum production. No swelling of the legs. No leg tenderness. She does not have a history of coronary disease. Associated symptoms: Deny abdominal pain, fever(s), nausea, palpitations or vomiting Review of Systems 2 Const: Denies: fever(s), chills or body aches Eyes: Denies: change in vision Card: Denies: palpitations Resp: Denies: wheezing GI: Denies: abdominal pain, nausea, vomiting, diarrhea or hematochezia : Denies: difficulty voiding Skin/Breast: Denies: rash Neuro: Denies: headache(s), weakness in extremities, dizziness or confusion PFSH ED 2 PFSH: Medical History Oivyu-Jkailmhle-Vraur (WPW) syndrome Social History Smoking and tobacco/nicotine status: current every day tobacco/nicotine user Alcohol intake: current Alcohol intake frequency: holidays/special occasions only Physical Exam 2 Const: COMMON NORMALS: no acute distress GENERAL APPEARANCE: cooperative; not ill appearing and not frail appearing HENMT: COMMON NORMALS: normocephalic, atraumatic and Normal external nose present HEAD & SCALP: normocephalic and atraumatic FACE & SINUS: normal facial exam and face symmetric NOSE: Normal external nose present Eye: COMMON NORMALS: Equal, round and reactive pupils present and EOMs intact bilaterally PUPIL: Yes Equal, round and reactive pupils present Neck/C-Spine: GENERAL: Yes trachea midline Chest: CHEST: Yes Symmetrical chest wall rise Resp: COMMON NORMALS: normal respiratory effort, No retractions and No use of accessory muscles AUSCULTATION: wheezes Cardio: COMMON NORMALS: regular rate and regular rhythm RATE: regular rate RHYTHM: regular rhythm GI: COMMON NORMALS: Normal to inspection, nondistended, normoactive bowel sounds present Extremity: COMMON NORMALS: no pedal edema Neuro: EDWIN COMA SCALE: document GCS findings [place] coma scale eye opening: Spontaneous [place] coma scale verbal response: Orientated Edwin coma scale motor response: Obey commands Edwin coma scale total score: 15 S ENSORY EXAM: Yes extremities (intact) Psych: COMMON NORMALS: speech normal SPEECH: Yes normal speech Skin: COMMON NORMALS: no rashes or lesions noted GENERAL SKIN EXAM: no rashes or lesions noted Course 2 Vital Signs: Vital signs: Vital Signs Temperature 98.3 F 02/16/24 22:10 Pulse Rate 89 02/16/24 22:10 Respiratory Rate 16 02/16/24 22:10 Blood Pressure 137/79 02/16/24 22:10 Pulse Oximetry 94 02/16/24 22:10 Oxygen Delivery Me thod Room Air 02/16/24 21:00 MDM - Chest Pain Medical Decision Making 58-year-old female with chest and upper back discomfort. Vitals are good. She is afebrile. CBC is normal. BMP is not remarkable. Her troponin is 6 and remains so at 2 hours. D-dimer is mildly elevated. Chest CTA reveals interstitial markings indicative of chronic interstitial lung disease. With an increase in shortness of breath, and his pain, we will put her on a steroid taper, have her use her inhaler, and follow-up as an outpatient. She will return for worsening symptoms. Lab Data 02/16/24 18:05 02/16/24 18:05 Radiology Impressions Chest X-Ray 02/16/24 18:09 IMPRESSION: Diffuse interstitial markings with peribronchial cuffing throughout both lungs are nonspecific but can be seen the setting of bronchitis, pulmonary vascular congestion, viral infection and small-vessel airways disease. Chest CTA 02/16/24 18:32 IMPRESSION: 1. No pulmonary emboli. 2. Extensive peripheral interstitial markings throughout lungs can be seen in the setting of chronic interstitial lung disease. Findings are similar to the prior chest CT dated 10/06/2023. 3. There is a 16 mm hypodense lesion in the left adrenal gland measuring 12 Hounsfield units and a 2.1 cm hypodense lesion in the right adrenal gland measuring 18 Hounsfield units. These are indeterminate and a three-phase adrenal CT or adrenal MRI may be obtained to further evaluate lesions. Laboratory Results WBC 9.09 10^3/uL (3.29-11.43) 02/16/24 18:05 RBC 5.23 10^6/uL (3.85-5.65) 02/16/24 18:05 Hgb 14.50 g/dL (11.27-16.99) 02/16/24 18:05 Hct 44.9 % (36-47) 02/16/24 18:05 MCV 85.9 fl (85-98) 02/16/24 18:05 MCH 27.7 pg (27-33) 02/16/24 18:05 MCHC 32.3 g/dL (30-55) 02/16/24 18:05 RDW 13.2 % (12.1-15.1) 02/16/24 18:05 Plt Count 308 10^3/cmm (157-399) 02/16/24 18:05 MPV 8.4 fL (7.4-10.4) 02/16/24 18:05 Neut % (Auto) 49.8 % 02/16/24 18:05 Lymph % (Auto) 40.7 % 02/16/24 18:05 [place] % (Auto) 7.7 % 02/16/24 18:05 Eos % (Auto) 1.1 % 02/16/24 18:05 Baso % (Auto) 0.4 % 02/16/24 18:05 Neut # (Auto) 4.52 10^3/uL (1.8-7.7) 02/16/24 18:05 Lymph # (Auto) 3.7 10^3/uL (0.8-4.8) 02/16/24 18:05 [place] # (Auto) 0.7 10^3/uL (0.2-0.9) 02/16/24 18:05 Eos # (Auto) 0.1 10^3/uL (0.0-0.8) 02/16/24 18:05 Baso # (Auto) 0.0 10^3/uL (0.0-0.1) 02/16/24 18:05 Nucleated RBC % (auto) 0 % 02/16/24 18:05 Nucleated RBCs # 0.0 /100WBC 02/16/24 18:05 D-Dimer 0.66 ug/mLFEU (0-0.59) H 02/16/24 18:05 Sodium 140 mmol/L (136-145) 02/16/24 18:05 Potassium 3.6 mmol/L (3.5-5.1) 02/16/24 18:05 Chloride 101 mmol/L (98-107) 02/16/24 18:05 Carbon Dioxide 29 mmol/L (22-29) 02/16/24 18:05 Anion Gap 13.6 (5-19) 02/16/24 18:05 BUN 5 mg/dL (6-20) L 02/16/24 18:05 Creatinine 0.6 mg/dL (0.5-0.9) 02/16/24 18:05 GFR Calculation 102.3 mL/min (90-130) 02/16/24 18:05 Glucose 121 mg/dL (65-115) H 02/16/24 18:05 Calculated Osmolality 289 mOsm/kg (285-295) 02/16/24 18:05 Calcium 9.0 mg/dL (8.5-10.5) 02/16/24 18:05 Total Bilirubin 0.2 mg/dL (0.15-1.2) 02/16/24 18:05 AST 12 U/L (0-32) 02/16/24 18:05 ALT 10 U/L (0-33) 02/16/24 18:05 Alkaline Phosphatase 99 U/L (35-105) 02/16/24 18:05 Creatine Kinase 32 U/L (26-192) 02/16/24 18:05 Troponin T Baseline < 6 ng/L (0-10) 02/16/24 18:05 Troponin T 120 Minute 6.00 ng/L (0-10) 02/16/24 19:54 Delta Troponin T 0.22664 ABS# (0-10) 02/16/24 19:54 NT-Pro-B Natriuret Pep 366 pg/mL (0-125) H 02/16/24 18:05 Total Protein 7.4 g/dL (6.6-8.7) 02/16/24 18:05 Albumin 3.8 g/dL (3.5-5.2) 02/16/24 18:05 Globulin 3.6 g/dL (1.3-4.6) 02/16/24 18:05 All radiology interpretation(s) finalized by discharge Discharge Plan Discharge Patient Disposition: Home Clinical Impression: Pulmonary fibrosis Condition: Stable Prescriptions: Continued prednisone 20 mg tablet 20 mg PO TID Qty: 15 0RF Rx Instructions: 1 p.o. 3 times daily x3 days, 1 p.o. twice daily x2 days, 1 p.o. daily x2 days No Action losartan 50 mg tablet 50 mg PO DAILY fluoxetine 40 mg capsule 40 mg PO DAILY Rx Instructions: Take with 20mg to equal 60mg daily ibuprofen 800 mg tablet 800 mg PO TID PRN (Reason: Pain) sotalol 80 mg tablet 80 mg PO DAILY clonazepam 0.5 mg tablet 0.5 mg PO BID PRN (Reason: Anxiety) simvastatin 10 mg tablet 10 mg PO DAILY olanzapine 10 mg tablet 10 mg PO BEDTIME gabapentin 300 mg capsule 300 mg PO BID omeprazole 20 mg capsule,delayed release(DR/EC) 20 mg PO DAILY fluoxetine 20 mg capsule 20 mg PO DAILY Rx Instructions: Take with 40mg to equal 60mg once daily albuterol sulfate 90 mcg/actuation HFA aerosol inhaler 2 inh INHALATION Q4H PRN (Reason: shortness of breath or wheezing) Qty: 18 0RF cefdinir 300 mg capsule 300 mg PO BID Qty: 14 0RF azithromycin 250 mg tablet See Rx Instructions .ROUTE .COMPLEX Qty: 6 0RF Rx Instructions: For 250 mg dose pack: take 500 mg today (day 1), then 250 mg for 4 days (days 2-5) Discharge Orders: Discharge ED (Routine); Ordered 02/16/24 Ordered By: Fredrick Coulter Referrals: Destiney Prescott FNP [Primary Care Provider] - 1-3 days Patient Instructions: Pulmonary Fibrosis (ED), Opioid Safety, Pain Management Activity Restrictions/Additional Instructions: Return to the ER for fever, worsening shortness of breath, worsening pain despite treatment, other concerning symptoms. Use your albuterol inhaler at least 3 times daily for the first 48 hours, then as needed following. See your doctor next week. Coding Level of Care Code ED Bowling Ball Marker for Jing Cali
[2024-02-16] MEDS: ipratropium-albuterol 3 mL Neb INHALATION (20:04)
[2024-02-16 20:18] LABS: Troponin 5 2HR Delta 0.00001 ABS# (0-10)
[2024-02-16] MEDS: dexamethasone 10 mg/mL INJ IVP (22:08)
== END 2024-02-16 22:07 | disposition home or self-care (01) ==
PROVIDERS: Emergency Provider Emergency Medicine; PCP Nurse Practitioner Primary Care
DX: J84.10 Pulmonary fibrosis, unspecified (principal); Z72.0 Tobacco use
CPT/HCPCS: 71045; 71275; 80053; 82550; 83880; 84484; 85025; 85378; 93005; 94640; 96374; 99285; J1100; Q9967

== ENCOUNTER → 2024-04-19 13:14 | Outpatient (BNVA) | payer OTHER, SELFPAY | PROVIDERS: PCP Nurse Practitioner Primary Care; Visit Provider Emergency Medicine | DX: R50.9 Fever, unspecified (principal); R11.0 Nausea; J84.89 Other specified interstitial pulmonary diseases | CPT/HCPCS: 71046 ==

== ENCOUNTER 2024-04-19 20:44 | Emergency (ER) | payer OTHER, SELFPAY ==
[2024-04-19 20:58] VITALS: BP 126/69; PULSE 118; RESP 16; TEMP 36.8; O2SAT 95
[2024-04-19 21:14] VITALS: BP 136/87; PULSE 107; RESP 13; O2SAT 95
[2024-04-19 21:31] LABS: Charge for UA Resulting for Rev
[2024-04-19 21:35] LABS: Bilirubin Urine Negative (Negative); Blood Urine Trace (Negative); Glucose Urine UA Negative (Normal); Ketones Urine Negative (Negative); Leukocyte Esterase Urine Negative (Negative); Nitrate Urine Negative (Negative); Protein Urine Trace (Negative); Specific Gravity, Urine 1.015 (1.005-1.030); Urine Appearance Cloudy (CLEAR); Urine Color Yellow (Yellow); pH Urine 6.5 (5-7)
[2024-04-19 21:44] LABS: Bacteria Urine None Seen /hpf; Hyaline Casts Urine 1.21 /lpf; WBC Urine 0-5 /hpf (0-5)
--- NOTE | 2024-04-19 21:46 | ED_ITS ---
Documented by User: BROOKLYNN Nayak 04/20/24 02:06 HPI - Nausea/Vomiting/Diarrhea 2 General: Chief complaint: Nausea/Vomiting/Diarrhea Stated complaint: N/V Time Seen by Provider: 04/19/24 20:57 Source: patient and family Mode of arrival: ambulatory Limitations: no limitations History of Present Illness: Patient presents emergency department today for evaluation treatment of continued nausea. Patient was seen and evaluated on 04/16 by the walk-in clinic for complaints of nausea. At that point she had had some diarrhea and vomiting and they diagnosed her with gastroenteritis. They provided her Zofran. They indicated that if she is not feeling better she should be seen and reevaluated again. Patient was not improving and went back today. They did a chest x-ray which was negative concerns for pneumonia-patient has chronic pulmonary fibrosis and is an active smoker. The diagnosis is pyelonephritis however, patient's urinalysis was relatively unimpressive and she is not expressing urinary symptoms. They did prescribe her some Levaquin today but, patient presents here for further evaluation. She reports intense nausea to the point where she has hardly eaten more than a few bites for over a week now. She reports tolerating fluids. She has not been taking her chronic medications this past week which includes her rate control medication for her Pwqrx-Uiyhnkqmv-Cpthz. Patient states it has been about a week since she had her last episode of vomiting. She states she has had very little diarrhea during this time. No recorded fevers but goes back and forth from chilling and sweating. Denies any specific other symptoms including sore throat, headache, arthralgias, rashes. No known recent tick bites. No abdominal pain. Related Data Home Medications Medication Instructions Recorded Confirmed clonazepam 0.5 mg tablet 0.5 mg PO BID PRN Anxiety 07/29/22 04/19/24 fluoxetine 20 mg capsule 20 mg PO DAILY 07/29/22 04/19/24 fluoxetine 40 mg capsule 40 mg PO DAILY 07/29/22 04/19/24 gabapentin 300 mg capsule 300 mg PO BID 07/29/22 04/19/24 ibuprofen 800 mg tablet 800 mg PO TID PRN Pain 07/29/22 04/19/24 losartan 50 mg tablet 50 mg PO DAILY 07/29/22 04/19/24 olanzapine 10 mg tablet 10 mg PO BEDTIME 07/29/22 04/19/24 omeprazole 20 mg capsule,delayed 20 mg PO DAILY 07/29/22 04/19/24 release simvastatin 10 mg tablet 10 mg PO DAILY 07/29/22 04/19/24 sotalol 80 mg tablet 80 mg PO DAILY 07/29/22 04/19/24 Previous Rx's Medication Instructions Recorded albuterol sulfate 90 mcg/actuation 2 inh inhalation Q4H PRN shortness 07/29/22 aerosol inhaler of breath or wheezing #18 grams ondansetron 4 mg disintegrating 4 mg PO Q6H PRN nausea and 04/16/24 tablet vomiting #15 tabs levofloxacin 500 mg tablet 500 mg PO DAILY 7 days #7 tabs 04/19/24 metoclopramide HCl 10 mg tablet 10 mg PO Q6H 7 days #28 tabs 04/20/24 Allergies Allergy/AdvReac Type Severity Reaction Status Date / Time No Known Allergies Allergy Verified 04/19/24 21:02 Review of Systems 2 General: Reports: 10 or more systems reviewed and unremarkable except in HPI and below PFSH ED 2 PFSH: Medical History Fpjrh-Lxjdqzhub-Htwpx (WPW) syndrome Social History Smoking and tobacco/nicotine status: unknown if used tobacco/nicotine Alcohol intake: current Alcohol intake frequency: holidays/special occasions only Physical Exam 2 Const: COMMON NORMALS: patient oriented x3 and alert OTHER: Patient appears extremely fatigued but is able to answer her own history. HENMT: COMMON NORMALS: normocephalic, atraumatic, hearing grossly normal bilaterally and moist oral mucous membranes HEAD & SCALP: normocephalic and atraumatic Eye: COMMON NORMALS: Equal, round and reactive pupils present, EOMs intact bilaterally and conjunctivae normal CONJUNCTIVA: Yes conjunctivae normal P UPIL: Yes Equal, round and reactive pupils present Neck/C-Spine: COMMON NORMALS: full ROM and no JVD Lymph: LYMPHATIC: no lymphadenopathy noted Resp: COMMON NORMALS: normal respiratory effort, No retractions, No use of accessory muscles and clear to auscultation bilaterally AUSCULTATION: clear to auscultation bilaterally Cardio: COMMON NORMALS: no JVD RATE: tachycardic GI: OTHER: Normoactive bowel sounds. Nontender on palpation. : COMMON NORMALS: Yes no CVA tenderness BLADDER/KIDNEY EXAM: Yes no CVA tenderness Back/Pelvis: COMMON NORMALS: no CVA tenderness, no thoracic nor lumbar tenderness and thoraco-lumbar ROM normal Extremity: COMMON NORMALS: normal to inspection, full ROM and capillary refill normal Neuro: COMMON NORMALS: patient oriented x3 SENSORIUM/ORIENTATION: Yes alert Psych: COMMON NORMALS: mental status grossly normal, Normal thought process present, cooperative, normal affect and activity/motor behavior normal T HOUGHT PROCESS: Normal thought process present Skin: COMMON NORMALS: no rashes or lesions noted and no wounds GENERAL SKIN EXAM: no rashes or lesions noted Course 2 Vital Signs: Vital signs: Vital Signs Temperature 98.2 F 04/20/24 00:43 Pulse Rate 85 04/20/24 00:43 Respiratory Rate 16 04/20/24 00:43 Blood Pressure 105/54 04/20/24 00:43 Pulse Oximetry 93 04/20/24 00:43 Oxygen Delivery Me thod Room Air 04/20/24 00:28 MDM - Nausea/Vomiting/Diarrhea Medical Decision Making Patient presents emergency department today with relatively vague symptoms- mostly complaining of intense nausea. She has not vomited now for many days and denies any abdominal discomfort. She is tolerating some fluids and has been trying to take her Zofran without improvement of her nausea. She has not been able to tolerate meals but reports having tried some Jell-O and popsicles. Patient's labs come back relatively unremarkable. She does have a bump in white count but, based on her scan shows no signs of any basilar pneumonias, acute abdominal processes including Colt or intra-abdominal infection, and no acute urinary findings on UA. Patient was treated with Compazine and Benadryl here in the emergency department and was given fluids. On recheck, patient was asleep in the room and appears to be resting more comfortably. When discussing patient's final results, she did indicates she was feeling better and significant other notes she looks improved. Will provide another dose of antinausea medicine prior to discharge. We will try treatment with Reglan for nausea control as Zofran does not seem to be working. Encouraged her to have follow-up with the beginning of the week with her primary care doctor for continued evaluation of her nausea however, at this time, we find no acute or emergent process on her MSE. Patient verbalizes understanding and agreement to treatment plan. Incidental finding of adrenal nodule on CT examination-was noted to the patient and wrote down for her on her discharge paperwork the recommendations for nonemergent, outpatient follow-up which can be discussed at her follow-up appointment with primary care next week during her overall ER follow-up. Discussed case multiple times with Dr. Coulter. We monitored her heart rate due to her Bywsv-Srsrlqunt-Saxfo syndrome with EKG and continuous cardiac monitoring. Patient had improvement of her heart rate with treatment and blood pressure remained stable. Did not provide a beta-james due to improvement of heart rate and stable blood pressure. Differential Diagnosis Unlikely traveler's diarrhea, food poisoning, gastroenteritis, drug-induced nausea and vomiting or dehydration Lab Data 04/19/24 21:46 04/19/24 21:46 Radiology Impressions Abdomen/Pelvis CT 04/19/24 22:37 IMPRESSION: 1. No acute findings in the abdomen/pelvis. 2. Bilateral adrenal nodules are indeterminate. Recommend nonemergent CT adrenal mass protocol for further assessment. 3. Hepatic steatosis. 4. Status post cholecystectomy. 5. Moderate aortic atherosclerosis. 6. Persistent fibrotic changes in the visualized lung bases. Laboratory Results WBC 15.01 10^3/uL (3.29-11.43) H 04/19/24 21:46 RBC 5.49 10^6/uL (3.85-5.65) 04/19/24 21:46 Hgb 15.70 g/dL (11.27-16.99) 04/19/24 21:46 Hct 46.6 % (36-47) 04/19/24 21:46 MCV 84.9 fl (85-98) L 04/19/24 21:46 MCH 28.6 pg (27-33) 04/19/24 21:46 MCHC 33.7 g/dL (30-55) 04/19/24 21:46 RDW 13.4 % (12.1-15.1) 04/19/24 21:46 Plt Count 344 10^3/cmm (157-399) 04/19/24 21:46 MPV 8.8 fL (7.4-10.4) 04/19/24 21:46 Neut % (Auto) 69.3 % 04/19/24 21:46 Lymph % (Auto) 23.4 % 04/19/24 21:46 Hopkins % (Auto) 6.2 % 04/19/24 21:46 Eos % (Auto) 0.4 % 04/19/24 21:46 Baso % (Auto) 0.4 % 04/19/24 21:46 Neut # (Auto) 10.40 10^3/uL (1.8-7.7) H 04/19/24 21:46 Lymph # (Auto) 3.5 10^3/uL (0.8-4.8) 04/19/24 21:46 Hopkins # (Auto) 0.9 10^3/uL (0.2-0.9) 04/19/24 21:46 Eos # (Auto) 0.1 10^3/uL (0.0-0.8) 04/19/24 21:46 Baso # (Auto) 0.1 10^3/uL (0.0-0.1) 04/19/24 21:46 Nucleated RBC % (auto) 0 % 04/19/24 21:46 Nucleated RBCs # 0.0 /100WBC 04/19/24 21:46 Sodium 137 mmol/L (136-145) 04/19/24 21:46 Potassium 3.3 mmol/L (3.5-5.1) L 04/19/24 21:46 Chloride 97 mmol/L (98-107) L 04/19/24 21:46 Carbon Dioxide 27 mmol/L (22-29) 04/19/24 21:46 Anion Gap 16.3 (5-19) 04/19/24 21:46 BUN 4 mg/dL (6-20) L 04/19/24 21:46 Creatinine 0.5 mg/dL (0.5-0.9) 04/19/24 21:46 GFR Calculation 126.3 mL/min (90-130) 04/19/24 21:46 Glucose 110 mg/dL (65-115) 04/19/24 21:46 Calculated Osmolality 282 mOsm/kg (285-295) L 04/19/24 21:46 Calcium 9.2 mg/dL (8.5-10.5) 04/19/24 21:46 Total Bilirubin 0.4 mg/dL (0.15-1.2) 04/19/24 21:46 AST 23 U/L (0-32) 04/19/24 21:46 ALT 25 U/L (0-33) 04/19/24 21:46 Alkaline Phosphatase 118 U/L (35-105) H 04/19/24 21:46 Total Protein 8.1 g/dL (6.6-8.7) 04/19/24 21:46 Albumin 4.2 g/dL (3.5-5.2) 04/19/24 21:46 Globulin 3.9 g/dL (1.3-4.6) 04/19/24 21:46 Lipase 24 U/L (13-60) 04/19/24 21:46 Procalcitonin 0.06 ng/mL (0-0.5) 04/19/24 21:46 Urine Color Yellow (Yellow) 04/19/24 21:20 Urine Appearance Cloudy (CLEAR) A 04/19/24 21:20 Urine pH 6.5 (5-7) 04/19/24 21:20 Ur Specific [place] 1.015 (1.005-1.030) 04/19/24 21:20 Urine Protein Trace (Negative) A 04/19/24 21:20 Urine Glucose (UA) Negative (Normal) 04/19/24 21:20 Urine Ketones Negative (Negative) 04/19/24 21:20 Urine Blood Trace (Negative) A 04/19/24 21:20 Urine Nitrate Negative (Negative) 04/19/24 21:20 Urine Bilirubin Negative (Negative) 04/19/24 21:20 Urine Urobilinogen 1.0 mg/dL (Negative) 04/19/24 21:20 Ur Leukocyte Esterase Negative (Negative) 04/19/24 21:20 Urine RBC 3-5 /hpf (0-2) 04/19/24 21:20 Urine WBC 0-5 /hpf (0-5) 04/19/24 21:20 Ur Squamous Epith Cells 6-10 /hpf (0-5) 04/19/24 21:20 Amorphous Sediment Not Reportable 04/19/24 21:20 Urine Bacteria None seen /hpf (NONE) 04/19/24 21:20 Hyaline Casts 1.21 /lpf 04/19/24 21:20 SARS-CoV-2 Ag (Rapid) negative (Negative) 04/19/24 21:20 All radiology interpretation(s) finalized by discharge Discharge Plan Discharge Patient Disposition: Home Clinical Impression: Nausea, Uyclx-Viqzdhbot-Yzqxn (WPW) syndrome Condition: Stable Prescriptions: New metoclopramide HCl 10 mg tablet 10 mg PO Q6H 7 Days Qty: 28 0RF No Action ondansetron 4 mg tablet,disintegrating 4 mg PO Q6H PRN (Reason: nausea and vomiting) Qty: 15 0RF levofloxacin 500 mg tablet 500 mg PO DAILY 7 Days Qty: 7 0RF losartan 50 mg tablet 50 mg PO DAILY fluoxetine 40 mg capsule 40 mg PO DAILY Rx Instructions: Take with 20mg to equal 60mg daily ibuprofen 800 mg tablet 800 mg PO TID PRN (Reason: Pain) sotalol 80 mg tablet 80 mg PO DAILY clonazepam 0.5 mg tablet 0.5 mg PO BID PRN (Reason: Anxiety) simvastatin 10 mg tablet 10 mg PO DAILY olanzapine 10 mg tablet 10 mg PO BEDTIME gabapentin 300 mg capsule 300 mg PO BID omeprazole 20 mg capsule,delayed release(DR/EC) 20 mg PO DAILY fluoxetine 20 mg capsule 20 mg PO DAILY Rx Instructions: Take with 40mg to equal 60mg once daily albuterol sulfate 90 mcg/actuation HFA aerosol inhaler 2 inh INHALATION Q4H PRN (Reason: shortness of breath or wheezing) Qty: 18 0RF Discharge Orders: Discharge ED (Routine); Ordered 04/20/24 Ordered By: Gloria Ca Referrals: Destiney Prescott, [employer] SUPPORT SPECIALIST [Primary Care Provider] - Discharge Diet: Advance as tolerated Discharge Activity: Increase activity as tolerated Patient Instructions: Acute Nausea and Vomiting (ED) Activity Restrictions/Additional Instructions: Labs today indicate no specific cause for your intense nausea symptoms. Abdominal evaluation revealed no acute findings in the GI tract. No signs of any issues with the stomach. No signs of any blockages. There is an incidental finding of a nodule on the adrenal gland which the radiologist says is stable and can be evaluated on its own at another time. Your urinalysis today did not indicate any concerns for urinary infection and CT scan did not show an active pyelonephritis. You seem to respond better to the antinausea medication from today and we can try a different antinausea medication than the Zofran you have been taking to see if we have better control of your symptoms. It still very important that you push your fluids. We do ask that you follow-up with your primary care doctor in the next couple of days for another recheck however, if you spike a high fever, have return of vomiting, have black or bloody stools, or develop specific abdominal pains we would recommend you be seen and reevaluated back to the emergency department. Coding Level of Care Code ED [employer] Coordinator for [employer] Documented by User: Fredrick Coulter DO 04/20/24 03:25 HPI - Nausea/Vomiting/Diarrhea 2 General: Chief complaint: Nausea/Vomiting/Diarrhea Stated complaint: N/V Time Seen by Provider: 04/19/24 20:57 Related Data Home Medications Medication Instructions Recorded Confirmed clonazepam 0.5 mg tablet 0.5 mg PO BID PRN Anxiety 07/29/22 04/19/24 fluoxetine 20 mg capsule 20 mg PO DAILY 07/29/22 04/19/24 fluoxetine 40 mg capsule 40 mg PO DAILY 07/29/22 04/19/24 gabapentin 300 mg capsule 300 mg PO BID 07/29/22 04/19/24 ibuprofen 800 mg tablet 800 mg PO TID PRN Pain 07/29/22 04/19/24 losartan 50 mg tablet 50 mg PO DAILY 07/29/22 04/19/24 olanzapine 10 mg tablet 10 mg PO BEDTIME 07/29/22 04/19/24 omeprazole 20 mg capsule,delayed 20 mg PO DAILY 07/29/22 04/19/24 release simvastatin 10 mg tablet 10 mg PO DAILY 07/29/22 04/19/24 sotalol 80 mg tablet 80 mg PO DAILY 07/29/22 04/19/24 Previous Rx's Medication Instructions Recorded albuterol sulfate 90 mcg/actuation 2 inh inhalation Q4H PRN shortness 07/29/22 aerosol inhaler of breath or wheezing #18 grams ondansetron 4 mg disintegrating 4 mg PO Q6H PRN nausea and 04/16/24 tablet vomiting #15 tabs levofloxacin 500 mg tablet 500 mg PO DAILY 7 days #7 tabs 04/19/24 metoclopramide HCl 10 mg tablet 10 mg PO Q6H 7 days #28 tabs 04/20/24 Allergies Allergy/AdvReac Type Severity Reaction Status Date / Time No Known Allergies Allergy Verified 04/19/24 21:02 [facility] ED 2 PFSH: Medical History Nrrlj-Sghcwnjkk-Jufsm (WPW) syndrome Social History Smoking and tobacco/nicotine status: unknown if used tobacco/nicotine Alcohol intake: current Alcohol intake frequency: holidays/special occasions only Course 2 Vital Signs: Vital signs: Vital Signs Temperature 98.2 F 04/20/24 00:43 Pulse Rate 85 04/20/24 00:43 Respiratory Rate 16 04/20/24 00:43 Blood Pressure 105/54 04/20/24 00:43 Pulse Oximetry 93 04/20/24 00:43 Oxygen Delivery Me thod Room Air 04/20/24 00:28 MDM - Nausea/Vomiting/Diarrhea Medical Decision Making Patient presents emergency department today with relatively vague symptoms- mostly complaining of intense nausea. She has not vomited now for many days and denies any abdominal discomfort. She is tolerating some fluids and has been trying to take her Zofran without improvement of her nausea. She has not been able to tolerate meals but reports having tried some Jell-O and popsicles. Patient's labs come back relatively unremarkable. She does have a bump in white count but, based on her scan shows no signs of any basilar pneumonias, acute abdominal processes including Colt or intra-abdominal infection, and no acute urinary findings on UA. Patient was treated with Compazine and Benadryl here in the emergency department and was given fluids. On recheck, patient was asleep in the room and appears to be resting more comfortably. When discussing patient's final results, she did indicates she was feeling better and significant other notes she looks improved. Will provide another dose of antinausea medicine prior to discharge. We will try treatment with Reglan for nausea control as Zofran does not seem to be working. Encouraged her to have follow-up with the beginning of the week with her primary care doctor for continued evaluation of her nausea however, at this time, we find no acute or emergent process on her MSE. Patient verbalizes understanding and agreement to treatment plan. Incidental finding of adrenal nodule on CT examination-was noted to the patient and wrote down for her on her discharge paperwork the recommendations for nonemergent, outpatient follow-up which can be discussed at her follow-up appointment with primary care next week during her overall ER follow-up. Discussed case multiple times with Dr. Coulter. We monitored her heart rate due to her Bpgnm-Tqupjvtep-Gbkol syndrome with EKG and continuous cardiac monitoring. Patient had improvement of her heart rate with treatment and blood pressure remained stable. Did not provide a beta-james due to improvement of heart rate and stable blood pressure. This patient was originally seen by Mrs. Roby PA-C.? I agree with her history, evaluation, and treatment. Lab Data 04/19/24 21:46 04/19/24 21:46 Radiology Impressions Abdomen/Pelvis CT 04/19/24 22:37 IMPRESSION: 1. No acute findings in the abdomen/pelvis. 2. Bilateral adrenal nodules are indeterminate. Recommend nonemergent CT adrenal mass protocol for further assessment. 3. Hepatic steatosis. 4. Status post cholecystectomy. 5. Moderate aortic atherosclerosis. 6. Persistent fibrotic changes in the visualized lung bases. Laboratory Results WBC 15.01 10^3/uL (3.29-11.43) H 04/19/24 21:46 RBC 5.49 10^6/uL (3.85-5.65) 04/19/24 21:46 Hgb 15.70 g/dL (11.27-16.99) 04/19/24 21:46 Hct 46.6 % (36-47) 04/19/24 21:46 MCV 84.9 fl (85-98) L 04/19/24 21:46 MCH 28.6 pg (27-33) 04/19/24 21:46 MCHC 33.7 g/dL (30-55) 04/19/24 21:46 RDW 13.4 % (12.1-15.1) 04/19/24 21:46 Plt Count 344 10^3/cmm (157-399) 04/19/24 21:46 MPV 8.8 fL (7.4-10.4) 04/19/24 21:46 Neut % (Auto) 69.3 % 04/19/24 21:46 Lymph % (Auto) 23.4 % 04/19/24 21:46 Hopkins % (Auto) 6.2 % 04/19/24 21:46 Eos % (Auto) 0.4 % 04/19/24 21:46 Baso % (Auto) 0.4 % 04/19/24 21:46 Neut # (Auto) 10.40 10^3/uL (1.8-7.7) H 04/19/24 21:46 Lymph # (Auto) 3.5 10^3/uL (0.8-4.8) 04/19/24 21:46 Hopkins # (Auto) 0.9 10^3/uL (0.2-0.9) 04/19/24 21:46 Eos # (Auto) 0.1 10^3/uL (0.0-0.8) 04/19/24 21:46 Baso # (Auto) 0.1 10^3/uL (0.0-0.1) 04/19/24 21:46 Nucleated RBC % (auto) 0 % 04/19/24 21:46 Nucleated RBCs # 0.0 /100WBC 04/19/24 21:46 Sodium 137 mmol/L (136-145) 04/19/24 21:46 Potassium 3.3 mmol/L (3.5-5.1) L 04/19/24 21:46 Chloride 97 mmol/L (98-107) L 04/19/24 21:46 Carbon Dioxide 27 mmol/L (22-29) 04/19/24 21:46 Anion Gap 16.3 (5-19) 04/19/24 21:46 BUN 4 mg/dL (6-20) L 04/19/24 21:46 Creatinine 0.5 mg/dL (0.5-0.9) 04/19/24 21:46 GFR Calculation 126.3 mL/min (90-130) 04/19/24 21:46 Glucose 110 mg/dL (65-115) 04/19/24 21:46 Calculated Osmolality 282 mOsm/kg (285-295) L 04/19/24 21:46 Calcium 9.2 mg/dL (8.5-10.5) 04/19/24 21:46 Total Bilirubin 0.4 mg/dL (0.15-1.2) 04/19/24 21:46 AST 23 U/L (0-32) 04/19/24 21:46 ALT 25 U/L (0-33) 04/19/24 21:46 Alkaline Phosphatase 118 U/L (35-105) H 04/19/24 21:46 Total Protein 8.1 g/dL (6.6-8.7) 04/19/24 21:46 Albumin 4.2 g/dL (3.5-5.2) 04/19/24 21:46 Globulin 3.9 g/dL (1.3-4.6) 04/19/24 21:46 Lipase 24 U/L (13-60) 04/19/24 21:46 Procalcitonin 0.06 ng/mL (0-0.5) 04/19/24 21:46 Urine Color Yellow (Yellow) 04/19/24 21:20 Urine Appearance Cloudy (CLEAR) A 04/19/24 21:20 Urine pH 6.5 (5-7) 04/19/24 21:20 Ur Specific [place] 1.015 (1.005-1.030) 04/19/24 21:20 Urine Protein Trace (Negative) A 04/19/24 21:20 Urine Glucose (UA) Negative (Normal) 04/19/24 21:20 Urine Ketones Negative (Negative) 04/19/24 21:20 Urine Blood Trace (Negative) A 04/19/24 21:20 Urine Nitrate Negative (Negative) 04/19/24 21:20 Urine Bilirubin Negative (Negative) 04/19/24 21:20 Urine Urobilinogen 1.0 mg/dL (Negative) 04/19/24 21:20 Ur Leukocyte Esterase Negative (Negative) 04/19/24 21:20 Urine RBC 3-5 /hpf (0-2) 04/19/24 21:20 Urine WBC 0-5 /hpf (0-5) 04/19/24 21:20 Ur Squamous Epith Cells 6-10 /hpf (0-5) 04/19/24 21:20 Amorphous Sediment Not Reportable 04/19/24 21:20 Urine Bacteria None seen /hpf (NONE) 04/19/24 21:20 Hyaline Casts 1.21 /lpf 04/19/24 21:20 SARS-CoV-2 Ag (Rapid) negative (Negative) 04/19/24 21:20 Discharge Plan Discharge Patient Disposition: Home Clinical Impression: Nausea, Dffts-Hlvbopunm-Aurpz (WPW) syndrome Condition: Stable Prescriptions: New metoclopramide HCl 10 mg tablet 10 mg PO Q6H 7 Days Qty: 28 0RF No Action ondansetron 4 mg tablet,disintegrating 4 mg PO Q6H PRN (Reason: nausea and vomiting) Qty: 15 0RF levofloxacin 500 mg tablet 500 mg PO DAILY 7 Days Qty: 7 0RF losartan 50 mg tablet 50 mg PO DAILY fluoxetine 40 mg capsule 40 mg PO DAILY Rx Instructions: Take with 20mg to equal 60mg daily ibuprofen 800 mg tablet 800 mg PO TID PRN (Reason: Pain) sotalol 80 mg tablet 80 mg PO DAILY clonazepam 0.5 mg tablet 0.5 mg PO BID PRN (Reason: Anxiety) simvastatin 10 mg tablet 10 mg PO DAILY olanzapine 10 mg tablet 10 mg PO BEDTIME gabapentin 300 mg capsule 300 mg PO BID omeprazole 20 mg capsule,delayed release(DR/EC) 20 mg PO DAILY fluoxetine 20 mg capsule 20 mg PO DAILY Rx Instructions: Take with 40mg to equal 60mg once daily albuterol sulfate 90 mcg/actuation HFA aerosol inhaler 2 inh INHALATION Q4H PRN (Reason: shortness of breath or wheezing) Qty: 18 0RF Discharge Orders: Discharge ED (Routine); Ordered 04/20/24 Ordered By: Gloria Ca Referrals: Destiney Prescott FNP [Primary Care Provider] - Discharge Diet: Advance as tolerated Discharge Activity: Increase activity as tolerated Patient Instructions: Acute Nausea and Vomiting (ED) Activity Restrictions/Additional Instructions: Labs today indicate no specific cause for your intense nausea symptoms. Abdominal evaluation revealed no acute findings in the GI tract. No signs of any issues with the stomach. No signs of any blockages. There is an incidental finding of a nodule on the adrenal gland which the radiologist says is stable and can be evaluated on its own at another time. Your urinalysis today did not indicate any concerns for urinary infection and CT scan did not show an active pyelonephritis. You seem to respond better to the antinausea medication from today and we can try a different antinausea medication than the Zofran you have been taking to see if we have better control of your symptoms. It still very important that you push your fluids. We do ask that you follow-up with your primary care doctor in the next couple of days for another recheck however, if you spike a high fever, have return of vomiting, have black or bloody stools, or develop specific abdominal pains we would recommend you be seen and reevaluated back to the emergency department. Coding Level of Care Code ED [employer] Coordinator for [employer]
[2024-04-19 21:47] LABS: SARS Covid-2 Antigen negative (Negative)
[2024-04-19 21:53] LABS: Basophils # 0.1 10^3/uL (0.0-0.1); Basophils % 0.4 %; Eosinophils # 0.1 10^3/uL (0.0-0.8); Eosinophils % 0.4 %; Hematocrit 46.6 % (36-47); Lymphocytes # 3.5 10^3/uL (0.8-4.8); Lymphocytes % 23.4 %; Mean Corpuscular HGB Conc 33.7 g/dL (30-55); Mean Corpuscular Hemoglobin 28.6 pg (27-33); Mean Corpuscular Volume 84.9 fl (85-98); Mean Platelet Volume 8.8 fL (7.4-10.4); Monocytes # 0.9 10^3/uL (0.2-0.9); Monocytes % 6.2 %; Neutrophils % 69.3 %; Nucleated Red Blood Cells % 0 %; Platelet Count 344 10^3/cmm (157-399); Red Blood Count 5.49 10^6/uL (3.85-5.65); Red Cell Distribution Width 13.4 % (12.1-15.1); White Blood Count 15.01 10^3/uL (3.29-11.43)
--- NOTE | 2024-04-19 21:53 | ECG_ITS ---
[facility] Test Date: 2024-04-19 Pat Name: Jennifer Kahn Department: Room: Gender: Female Director Of Recruiting: : 1965 Requested By: Gloria Miles Order Number: [id number] Roberta MD: Zhane Stanley M.D. Measurements Intervals [place] Rate: 107 P: 32 [place]: 180 QRS: 30 QRSD: 77 T: 14 QT: 340 QTc: 455 Interpretive Statements SINUS TACHYCARDIA POSSIBLE LEFT ATRIAL ENLARGEMENT [-0.1mV P-WAVE IN V1/V2] LOW QRS VOLTAGE IN PRECORDIAL LEADS [QRS DEFLECTION < 1.0 mV IN CHEST LEADS] SEPTAL MYOCARDIAL INFARCTION , OF INDETERMINATE AGE [40+ ms Q WAVE IN V1/V2] Nonspecific T wave changes Compared to ECG 02/16/2024 20:49:24 Low QRS voltage now present Myocardial infarct finding now present Sinus rhythm no longer present ST (T wave) deviation no longer present Electronically Signed On 04-20-2024 20:33:00 CDT by Zhane Stanley M.D. [email or web address]
[2024-04-19 22:05] VITALS: BP 107/62; PULSE 88; RESP 16; O2SAT 98
[2024-04-19 22:14] LABS: Alanine Aminotransferase 25 U/L (0-33); Albumin Level 4.2 g/dL (3.5-5.2); Alkaline Phosphatase 118 U/L (35-105); Anion Gap 16.3 (5-19); Aspartate Amino Transferase 23 U/L (0-32); Blood Urea Nitrogen 4 mg/dL (6-20); Calcium 9.2 mg/dL (8.5-10.5); Carbon Dioxide 27 mmol/L (22-29); Chloride 97 mmol/L (98-107); Creatinine Clr Calc Pharmacy 130.5067; Globulin 3.9 g/dL (1.3-4.6); Glomerular Filtration Rate 126.3 mL/min (90-130); Glucose 110 mg/dL (65-115); Lipase 24 U/L (13-60); Osmolality Calculated 282 mOsm/kg (285-295); Potassium 3.3 mmol/L (3.5-5.1); Sodium 137 mmol/L (136-145); Total Bilirubin 0.4 mg/dL (0.15-1.2); Total Protein 8.1 g/dL (6.6-8.7)
[2024-04-19 22:19] LABS: Procalcitonin 0.06 ng/mL (0-0.5)
[2024-04-19] MEDS: prochlorperazine 10 mg/2 mL Inj IVP (22:26)
[2024-04-19] MEDS: sodium chloride 0.9% 1,000 ML 999 ML IV (22:26)
[2024-04-19] MEDS: diphenhydrAMINE 50 mg/mL SDV 1mL IVP (22:29)
--- NOTE | 2024-04-19 22:37 | CTR_ITS ---
PROCEDURE INFORMATION: Exam: CT Abdomen And Pelvis With Contrast Exam date and time: 04/19/2024 10:47 PM Age: 58 years old Clinical indication: Abnormal findings; Abnormal lab test; Elevated wbc; Nausea and vomiting; Prior surgery; Surgery date: 6+ months; Surgery type: Gb. Spinal alif. Patient HX: N/v with wbc of 15k. ; Additional info: Nausea and vomiting, nausea, wbc 15 TECHNIQUE: Imaging protocol: Computed tomography of the abdomen and pelvis with contrast. Radiation optimization: All CT scans at this facility use at least one of these dose optimization techniques: automated exposure control; mA and/or kV adjustment per patient size (includes targeted exams where dose is matched to clinical indication); or iterative reconstruction. Contrast material: OMNI 350; Contrast volume: 100 ml; Contrast route: INTRAVENOUS (IV); COMPARISON: CT angio chest PE protcl [id number] 02/16/2024 6:41 PM RADIATION DOSE METRICS: Total DLP (mGy-cm): 707.84 FINDINGS: Lungs: Redemonstrated fibrotic changes in the lung bases with interstitial prominence and scattered ground-glass opacities. Findings are somewhat improved from 02/16/2024. Liver: Hepatic steatosis. Gallbladder and biliary ducts: Status post cholecystectomy. Pancreas: Normal. No ductal dilation. Spleen: Normal. No splenomegaly. Adrenal glands: 2.1 cm right adrenal nodule and 1.6 cm left adrenal nodule are indeterminate. Kidneys and ureters: Normal. No hydronephrosis. Stomach and bowel: Unremarkable. No obstruction. No mucosal thickening. Appendix: No evidence of appendicitis. Intraperitoneal space: Unremarkable. No free air. No significant fluid collection. Vasculature: Moderate atherosclerotic calcifications of the abdominal aorta and its branch vessels. No aortic aneurysm. Lymph nodes: Unremarkable. No enlarged lymph nodes. Urinary bladder: Unremarkable as visualized. Reproductive: Unremarkable as visualized. Bones/joints: Anterior fusion at L4-L5. Moderate degenerative changes of the lumbar spine. No acute fracture. Soft tissues: Unremarkable. CT/CT abdomen pelvis w con* [id number] IMPRESSION: 1. No acute findings in the abdomen/pelvis. 2. Bilateral adrenal nodules are indeterminate. Recommend nonemergent CT adrenal mass protocol for further assessment. 3. Hepatic steatosis. 4. Status post cholecystectomy. 5. Moderate aortic atherosclerosis. 6. Persistent fibrotic changes in the visualized lung bases.
[2024-04-19] MEDS: iohexol 350 mg/mL 500 mL Btl (per mL) IV (22:49)
[2024-04-20] MEDS: metoclopramide 5 mg/mL SDV 2 mL 10 MG IVP (00:25)
[2024-04-20 00:28] VITALS: BP 105/54; PULSE 85; RESP 16; O2SAT 93
[2024-04-20 00:43] VITALS: BP 105/54; PULSE 85; RESP 16; TEMP 36.8; O2SAT 93
== END 2024-04-20 00:44 | disposition home or self-care (01) ==
PROVIDERS: Emergency Provider Physician Assistant; PCP Nurse Practitioner Primary Care
DX: R11.0 Nausea (principal); I45.6 Pre-excitation syndrome; Z11.52 Encounter for screening for COVID-19
CPT/HCPCS: 74177; 80053; 81000; 81003; 81015; 83690; 84145; 85025; 87086; 87426; 93005; 96374; 96375; 99285; J0780; J1200; J2765; J7030; Q9967

== ENCOUNTER 2024-09-17 13:05 | Outpatient (CLI) | payer MEDICAID, SELFPAY ==
--- NOTE | 2024-09-17 13:08 | MR_ITS ---
WS: [id number] MRI HEAD WITH CONTRAST TECHNIQUE: Sagittal T1, T2 axial, T2 axial FLAIR, axial susceptibility weighted imaging, axial diffus ion weighted images, and coronal T2 images were obtained. Pre and post-T1 axial and post T1 coronal i mages. ADC and FSPGR images. CLINICAL INFORMATION: Headache/Fatigue COMPARISON: None. FINDINGS: No evidence of restricted diffusion to suggest acute ischemia. Ventricular system and basal cisterns are patent. Normal posterior fossa. Normal vascular flow voids at the skull base. No extra-axial flui d collections. No evidence of mass or mass effect. Paranasal sinuses and mastoid air cells are well a erated. No hemosiderin on the susceptibly weighted images. Normal optic chiasm and pituitary infundibulum. Te mporal lobes hippocampal formations are normal in appearance. Minimal small vessel changes. No significant parenchymal volume loss. Tiny incidental benign venous a ngioma RIGHT frontal lobe. No abnormal gadolinium enhancement. MR/MR head wo/w con [id number] IMPRESSION: 1. No evidence of restricted diffusion to suggest acute ischemia. 2. Minimal small vessel changes. No significant parenchymal volume loss. 3. No abnormal gadolinium enhancement. 4. No hemosiderin on susceptibility-weighted images. 5. No other suspicious findings.
[2024-09-17] MEDS: gadobenate dimeglumine 20 mL vial 15 ML IV (14:14)
== END 2024-09-17 13:06 | disposition home or self-care (01) ==
PROVIDERS: PCP Nurse Practitioner Primary Care; Visit Provider Nurse Practitioner Primary Care
DX: R51.9 Headache, unspecified (principal); R53.83 Other fatigue
CPT/HCPCS: 70553; A9577